=== PATIENT | male | born 1995 | race Two or more races ===

== ENCOUNTER → 2022-07-04 13:23 | Outpatient (BNVA) | payer OTHER, SELFPAY | PROVIDERS: Visit Provider Internal Medicine | DX: S56.912A Strain of unspecified muscles, fascia and tendons at forearm level, left arm, initial encounter (principal); S56.911A Strain of unspecified muscles, fascia and tendons at forearm level, right arm, initial encounter; X50.3XXA Overexertion from repetitive movements, initial encounter | CPT/HCPCS: 99203 ==

== ENCOUNTER → 2022-07-18 08:48 | Outpatient (BNVA) | payer OTHER, SELFPAY | PROVIDERS: Visit Provider Physician Assistant | DX: S56.911D Strain of unspecified muscles, fascia and tendons at forearm level, right arm, subsequent encounter (principal); S56.912D Strain of unspecified muscles, fascia and tendons at forearm level, left arm, subsequent encounter; X50.3XXD Overexertion from repetitive movements, subsequent encounter | CPT/HCPCS: 99213 ==

== ENCOUNTER 2022-07-22 09:30 | Outpatient (RCR) | payer OTHER, MEDICAID, SELFPAY ==
--- NOTE | 2022-07-17 09:47 | MHC.OT.EP ---
[address] [phone] Occupational Therapy Plan of Care Date of Evaluation: 07/17/22 Diagnosis: B/L Forearm strain Pain Location: Right volar forearm worse than left, not constant Aches more w/ use Pain Score: 3 Pain Scale Used: Numeric (0 - 10) Aggravating Factors: Heavy lifting and heavy use Alleviating Factors: Ice and hand/wrist exercises Assessment: 26 yo right hand dominant male presents about three weeks after B/L forearm strain at work. He reports the left arm is feeling much better but still has occasional ache and tenderness in right forearm. On assessment, he reports he has been resting his arms and sharing heavier household tasks with his , but was able to shovel snow yesterday w/ minimal difficulty. On assessment, he has good range in elbows and wrists and strong gross grasp (right 85lb and left 80lb), and mild tenderness to palpate right volar forearm over flexor mass. Overall he is doing well and has good follow through w/ recommended stretches from [facility], he will benefit from brief course of OT for continue stretching and strengthening and education on injury prevention and mechanics. Frequency and Duration: The patient will be seen 2x/wk for 2 weeks Short Term Goals: Ind w/ HEP for stretching and strengthening Pt to demo lift and carry >40lb w/ ease Pt to demo Ind w/ joint protection techniques w/ lifting and grasping Pt to demo self STM/DTM massage Pump Tender Goals: same as above Treatment Plan: Therapeutic Exercise Therapeutic Activity Home Exercise Program Patient Education ADL Training Ultrasound MHP Soft Tissue Mobilization Electronically Signed By: Taniya Posey OTR/L CHT Please Sign and return to therapist. Thank you once again for your referral.
--- NOTE | 2022-07-22 10:48 | MHC.OT.DC ---
[address] [phone] F: [phone] Occupational Therapy Discharge Note Patient Name: Tonny Trujillo Provider: Lorna French PA-C Diagnosis: B/L Forearm strain Date of Evaluation: 07/17/22 Date of Discharge: 07/22/22 Treatments to Date: 2 Discharge Status: Achieved Goals Improved Function Independent with HEP Discharge Summary: 27 YO MALE EVAL'ED LAST WEEK W/ B/L FOREARM STRAIN, STATES HE IS BACK TO WORK WITHOUT RESTRICTIONS AND ABLE TO LIFT WITH NO ISSUES. NO REPORTED DURING OT RX SESSION. Pt WISHES TO TRANSITION TO A HOME BASED PROGRAM. D/C OT SERVICES. Electronically Signed By: CASTILLO SANFORD, OTR/L CHT Please Sign and return to therapist, thank you for your referral.
== END 2022-07-22 10:49 | disposition home or self-care (01) ==
LOC: HO.OT 09:30
PROVIDERS: Visit Provider Physician Assistant
DX: S56.911D Strain of unspecified muscles, fascia and tendons at forearm level, right arm, subsequent encounter (principal); S56.912D Strain of unspecified muscles, fascia and tendons at forearm level, left arm, subsequent encounter
CPT/HCPCS: 97110; 97140; 97165